=== PATIENT | female | born 1945 | race Caucasian/White ===

== ENCOUNTER → 2018-01-31 | Outpatient (CLI) | payer MEDICARE, OTHER ==
[~2018-01-31] MED LIST: ASPI-808 PO; ATOR20TA66 PO; BISO1TAB6 PO; CALC600T12 PO; CETI10TA17 PO; CHOL100048 PO; LEVO88TA54 PO; LISI-552 PO; NIAC500T24 PO; OMG1KC PO; TERA5CAP3 PO; VITA-189 PO
--- NOTE | 2018-01-31 17:16 | Diagnostic Imaging Report ---
INDICATION: Knee pain. COMPARISON: None. FINDINGS: Three views of the right knee are obtained. No acute fracture, malalignment, or osseous destructive process is seen. Joint spaces are preserved. Soft tissues appear unremarkable. IMPRESSION: Negative right knee. Dictated by: Dictated on workstation # [id number]
== END ==
LOC: RAD 16:48
PROVIDERS: ATTEND Nurse Practitioner Family
DX: M25.561 Pain in right knee (principal)
CPT/HCPCS: 73562

== ENCOUNTER → 2018-02-04 | Outpatient (CLI) | payer MEDICARE, OTHER ==
--- NOTE | 2018-02-04 10:23 | Diagnostic Imaging Report ---
EXAMINATION: Magnetic resonance imaging of the right knee without intravenous contrast DATE: 02/04/2018. COMPARISON: Right knee radiographs 01/31/2018. INDICATION: 72-year-old female, right knee pain for 3-4 months. TECHNIQUE: Multiplanar, multisequence non contrast enhanced MR imaging was accomplished. FINDINGS: MENISCI: There is an oblique tear involving the anterior horn, body, posterior horn, and posterior root attachment of the medial meniscus. The medial meniscal tear is more complex and extensive in the region of the posterior horn and posterior root attachment. There is 6 mm medial meniscal extrusion. There is a longitudinal horizontal type tear involving the anterior horn, body, and posterior horn of the lateral meniscus. LIGAMENTS AND TENDONS: The anterior and posterior cruciate ligaments are intact. The medial collateral ligament is intact. The iliotibial band, mid third lateral capsular ligament, fibular collateral ligament, biceps femoris tendon and conjoined tendon are intact. The quadriceps tendon and patella ligament are intact. JOINT: There is fissuring and irregularity along the entire length of the lateral patellar facet cartilage with degenerative related subchondral edema underlying the cartilage abnormalities. There is a 3 x 5 mm full-thickness cartilage defect of the mid lateral tibial plateau cartilage best illustrated on sagittal proton density fat saturation sequence image 8. The medial compartment cartilage is grossly intact. There is no knee joint effusion, prominent synovitis, or intra-articular body. BONE: There is low-level edema-like signal in the proximal tibia near the attachment side of the posterior root of the medial meniscus which is likely mechanically related. There is no acute fracture, bone contusion, or evidence of osteonecrosis. BURSAE AND SOFT TISSUES: There is a Medina's cyst measuring 3.4 x 1.5 x 7.5 cm in size. There is a focal fluid superficial to the patella and proximal patellar tendon compatible with a adventitial bursitis. There is adjacent nonspecific prepatellar subcutaneous edema. IMPRESSION: 1. Extensive tear of the medial meniscus with 6 mm medial meniscal extrusion. 2. Longitudinal horizontal type tear involving the anterior horn, body, and posterior horn of the lateral meniscus. 3. Intact anterior and posterior cruciate ligaments. 4. 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 No knee joint effusion. 5. Medina's cyst. 6. Prepatellar adventitial bursitis. 7. No acute fracture, bone contusion, or evidence of osteonecrosis. Dictated by: Dictated on workstation # [id number]
== END ==
LOC: RAD 08:23
PROVIDERS: ATTEND Nurse Practitioner Family
DX: S83.281A Other tear of lateral meniscus, current injury, right knee, initial encounter (principal); S83.241A Other tear of medial meniscus, current injury, right knee, initial encounter; M17.11 Unilateral primary osteoarthritis, right knee; M71.21 Synovial cyst of popliteal space [Baker], right knee; M70.51 Other bursitis of knee, right knee
CPT/HCPCS: 73721

== ENCOUNTER 2019-05-08 05:37 | Outpatient (CLI) | payer MEDICARE, OTHER ==
[~2019-05-08] VITALS: Ht 154.9 cm; Wt 79.1 kg
[2019-05-08] MEDS ORDERED: CHOL500044 PO (12:31)
[2019-05-08] MEDS ORDERED: LIOT5TAB PO (12:31)
[2019-05-08] MEDS ORDERED: BIOT5000 PO (12:31)
[2019-05-08] MEDS ORDERED: METO-387 PO (12:31)
== END 2019-05-08 12:33 | disposition home or self-care (01) ==
LOC: PREOP 05:37
PROVIDERS: ATTEND Internal Medicine
DX: Z01.818 Encounter for other preprocedural examination (principal)

== ENCOUNTER 2019-05-12 07:54 | Day surgery (SDC) | payer MEDICARE, OTHER ==
--- NOTE | 2019-05-06 11:02 | HISTORY AND PHYSICAL ---
DATE OF SERVICE: COLONOSCOPY HISTORY AND PHYSICAL HISTORY OF PRESENT ILLNESS: The patient is a 73-year-old white female referred for screening colonoscopy by Dr. Chan. I performed her only other colonoscopy in 2004 revealed no evidence for neoplasia. She is deemed to be of higher than average risk as her mother was diagnosed with colon cancer at the age of 74 and at the age of 78. She is not aware of any other family history for malignancy. She has had some recent change in bowel habit, only going every 2 or 3 days. She denies bright red blood per rectum, melena or having to strain to pass hard stool. She is just going less often. In the past, she has had problems with stool urgency within 10 to 20 minutes of meals, but this has not been an issue for the last several months. She denies any abdominal pain or significant bloating. PAST MEDICAL HISTORY: Significant for hyperlipidemia, Brittney's thyroiditis and rare episodes of atrial tachycardia. One was noted during stress test 3 weeks ago performed by Dr. Fleming that revealed no evidence for ischemia. It was an exercise Myoview test and the patient went 4 minutes on a standard [facility] protocol. PAST SURGICAL HISTORY: Significant for tonsillectomy in 7, total abdominal hysterectomy in 1981, carpal tunnel release on the right in 2004, bilateral cataract surgery in 2013 and trigger finger release in 2015. MEDICATIONS ON ADMISSION: Include aspirin 325 mg daily, atorvastatin 20 mg daily, L-thyroxine 0.88 mg daily, liothyronine 5 mcg daily, fish oil 1000 mg 3 times daily, vitamin D3 5000 units daily and biotin 5000 units daily. SOCIAL HISTORY: The patient is retired. Rare alcohol intake and no past smoking history. FAMILY HISTORY: As noted in the HPI. PHYSICAL EXAMINATION: GENERAL: Reveals a pleasant, articulate white female, in no acute distress. VITAL SIGNS: Blood pressure 140/86, weight 174.6 pounds. HEENT: Unremarkable. Sclerae nonicteric. CHEST: Clear to auscultation. CARDIOVASCULAR: Reveals regular rate and rhythm without murmur, S3 or S4. ABDOMEN: Soft, supple without mass, organomegaly or tenderness. Bowel sounds are positive. No distention is noted. No bruits are appreciated. EXTREMITIES: Reveal no cyanosis, clubbing or edema. ASSESSMENT AND PLAN: The patient was set up for screening colonoscopy on 05/12/2019. She was advised to discontinue aspirin and Amado-prep instructions were given with the Amado-prep kit. Questions were answered. Electronic medical record was reviewed. I thank you for the referral of this pleasant lady. Job ID: [id number] DocumentID: [id number] Dictated Date: 05/04/2019 16:13:38 Senior Reliability Engineer Date: 05/04/2019 16:30:18 Dictated By: PRADEEP FUNEZ MD MTDD
[2019-05-12] VITALS (13 sets, daily range): BP systolic 106–136; BP diastolic 55–76
[~2019-05-12] VITALS: Ht 154.9 cm; Wt 79.1 kg
[~2019-05-12 07:54] MED LIST changes: +BIOT5000 PO; +CHOL500044 PO; +LIOT5TAB PO; +METO-387 PO
[2019-05-12] MEDS ORDERED: D5 LR IV SOLUTION 1,000 ML IV ONE (08:02)
[2019-05-12] MEDS ORDERED: D5 LR IV SOLUTION 1,000 ML IV STA (08:04)
[2019-05-12] MEDS ORDERED: MIDAZOLAM 5 MG/5 ML (VERSED) VIAL IV PRN (08:15)
[2019-05-12] MEDS ORDERED: LIDOCAINE JELLY 2% 6 ML SYRINGE MM PRN (08:15)
[2019-05-12] MEDS ORDERED: fentaNYL INJECTION 100 MCG/2 ML AMP IVP ONE (08:15)
[2019-05-12] MEDS ORDERED: LIDOCAINE JELLY 2% 6 ML SYRINGE ONE (08:43)
[2019-05-12] MEDS ORDERED: MIDAZOLAM 2 MG/2 ML (VERSED) VIAL ONE (08:43)
[2019-05-12] MEDS ORDERED: fentaNYL INJECTION 100 MCG/2 ML AMP ONE (08:43)
--- NOTE | 2019-05-12 09:48 | Pre-Op Note & Conscious Sedat ---
Pre-Operative Progress Note H&P Reviewed The H&P was reviewed, patient examined and no changes noted. Date H&P Reviewed: May 12, 2019 Time H&P Reviewed: 08:30 Conscious Sedation Pre-Proced ASA Score 2 For ASA 3 and 4: Consider anesthesia and medical clearance. Also, for patients with a history of failed moderate sedation consider anesthesia. Airway Lungs Heart ASA score ASA 1: a normal healthy patient ASA 2: a patient with a mild systemic disease (mid diabetes, controlled hypertension, obesity ASA 3: a patient with a severe systemic disease that limits activity (angina, COPD, prior Myocardial infarction) ASA 4: a patient with an incapacitating disease that is a constant threat to life (CHF, renal failure) ASA 5: a moribund patient not expected to survive 24 hrs. (ruptured aneurysm) ASA 6: a declared brain- patient whose organs are being harvested. For emergent operations, add the letter E after the classification Mallampati Classification Grade 2 Sedation Plan Analgesia, Amnesia, Plan communicated to team members, Discussed options with patient/fam, Discussed risks with patient/fam The patient is an appropriate candidate to undergo the planned procedure, sedation, and anesthesia. The patient immediately re-assessed prior to indication. PRADEEP FUNEZ MD May 12, 2019 09:48
--- NOTE | 2019-05-12 18:48 | OPERATIVE REPORT ---
DATE OF SERVICE: COLONOSCOPY SUMMARY INDICATION FOR THE PROCEDURE: Screening colonoscopy. The patient is deemed to be of higher than average risk as her mother was diagnosed with colon cancer at the age of 78. DESCRIPTION OF PROCEDURE: The patient was placed in the left lateral decubitus position. Prior to undergoing colonoscopy, digital rectal evaluation was performed. Anal sphincter tone was normal and the perianal reflexes intact. Digital evaluation is compatible with an anterior rectocele. There was no evidence for any pockets of stool. No other abnormalities were noted on digital inspection of anal canal or distal rectal vault. The colonoscope was then inserted into the rectum and under direct visualization advanced to the cecum. The cecum was identified by identification of ileocecal valve and cecal strap and appendiceal orifice. Photographic documentation was obtained. Quality of prep was good. FINDINGS: There was no evidence for internal or external hemorrhoids and the rectum, sigmoid colon, descending colon, splenic flexure, transverse colon, hepatic flexure, ascending colon and cecum were unremarkable with no evidence for neoplasia or diverticular disease. ASSESSMENT: Normal colonoscopy to the cecum. Considering family history, I would advocate consideration for repeat screening colonoscopy in 5 years. I thank you for the referral of this pleasant lady. Job ID: [id number] DocumentID: [id number] Dictated Date: 05/12/2019 10:33:00 Vp & General Counsel Date: 05/12/2019 18:47:45 Dictated By: PRADEEP FUNEZ MD
== END 2019-05-12 10:00 | disposition home or self-care (01) ==
LOC: ENDO 07:54
PROVIDERS: ATTEND Internal Medicine
DX: Z12.11 Encounter for screening for malignant neoplasm of colon (principal); E78.5 Hyperlipidemia, unspecified; E06.3 Autoimmune thyroiditis; Z90.89 Acquired absence of other organs; Z90.710 Acquired absence of both cervix and uterus; Z79.82 Long term (current) use of aspirin; Z79.899 Other long term (current) drug therapy; Z80.0 Family history of malignant neoplasm of digestive organs

== ENCOUNTER → 2020-06-03 | Outpatient (CLI) | payer MEDICARE, OTHER ==
[~2020-06-03] VITALS: Ht 155 cm; Wt 77.0 kg
[~2020-06-03] MED LIST changes: +BISO-3 PO; -BISO1TAB6 PO; -CALC600T12 PO; +CATHETER FLUSH 10 ML SYR IV PRN; +CLC600T PO; -LIOT5TAB PO; +LIOT5TAB10 PO; -METO-387 PO; +MTP25TSR PO
[2020-06-03 09:12] VITALS: BP 133/76
--- NOTE | 2020-06-03 11:47 | Cardiology Stress Test Report ---
Stress Test Report Date of Procedure/Referring: Date of Procedure: Jun 03, 2020 PCP Ambika Brothers Admitting Physician Lorena Chan MD Indications: Hypertension Baseline Heart Rate: 79 Baseline Blood Pressure: Blood Pressure Systolic: 133 Blood Pressure Diastolic: 76 Vital Signs Date Time Temp Pulse Resp B/P (MAP) Pulse Ox O2 Delivery O2 Flow Rate FiO2 06/03/20 09:12 79 133/76 (95) 98 Baseline Vital Signs Vital Signs Date Time Temp Pulse Resp B/P (MAP) Pulse Ox O2 Delivery O2 Flow Rate FiO2 06/03/20 09:12 79 133/76 (95) 98 Baseline EKG: Baseline EKG: normal sinus rhythm Summary: After explaining the procedure and details to the patient, she signed the consent and was brought to the stress nuclear laboratory. Patient exercised on standard [facility] protocol, EKG, heart rate and blood pressure were monitored continuously, resting and stress doses of radio tracer were injected, imaging was acquired and reviewed in the short axis, horizontal long axis and vertical long axis views Patient was able to exercise for a total of 3 minutes on [facility] protocol, METs 4.6 Maximum heart rate 136 Maximum blood pressure 207/66 Stress EKG, Minimal nondiagnostic changes Recovery EKG, Return to baseline TID: 0.88 SSS: 5 SDS: 5 EF: 74 Conclusion: 1. Poor exercise tolerance for a total of 3 minutes on standard [facility] protocol, total of 4.6 METs achieving 93 percent of maximum expected heart rate 2. Hypertensive response to exercise with peak blood pressure 207/66 returned to baseline during recovery 3. Minimal nondiagnostic EKG changes with exercise returned to baseline during recovery 4. Breast attenuation with mild decreased uptake involving the mid to apical anterior lateral and inferolateral wall with subtle reversibility, probably due to breast attenuation. No significant ischemia or infarction on SPECT images was noted 5. Normal left ventricular size, EF 74 percent HIWOT CAIN MD Jun 03, 2020 11:47
== END ==
LOC: CARD 08:00
PROVIDERS: ATTEND Physician Assistant
DX: I35.1 Nonrheumatic aortic (valve) insufficiency (principal); I10 Essential (primary) hypertension; I20.1 Angina pectoris with documented spasm; E78.5 Hyperlipidemia, unspecified
CPT/HCPCS: 78452; 93017; A9502

== ENCOUNTER 2021-05-08 10:03 | Outpatient (CLI) | payer MEDICARE, OTHER ==
[~2021-05-08] VITALS: Ht 154.9 cm; Wt 79.1 kg
[~2021-05-08 10:03] MED LIST changes: +CALC600T91 PO; -CATHETER FLUSH 10 ML SYR IV PRN; -CLC600T PO; -LISI-552 PO; +LISI20TA26 PO; +TERA5CAP10 PO; -TERA5CAP3 PO
[2021-05-08] MEDS ORDERED: DENOSUMAB 60 MG/1 ML (PROLIA) SQ SCH (10:45)
[2021-05-08 10:50] VITALS: BP 143/84
== END 2021-05-08 12:09 | disposition home or self-care (01) ==
LOC: SDC 10:03
PROVIDERS: ATTEND Family Medicine
DX: M81.0 Age-related osteoporosis without current pathological fracture (principal)
CPT/HCPCS: 96372

== ENCOUNTER → 2021-07-21 | Outpatient (CLI) | payer MEDICARE, OTHER | LOC: CARD 10:00 | PROVIDERS: ATTEND Internal Medicine Cardiovascular Disease | DX: I08.0 Rheumatic disorders of both mitral and aortic valves (principal); I11.9 Hypertensive heart disease without heart failure; I49.9 Cardiac arrhythmia, unspecified | CPT/HCPCS: 93225; 93226; 93306 ==

== ENCOUNTER → 2021-11-12 | Outpatient (CLI) | payer MEDICARE, OTHER ==
[~2021-11-12] MED LIST changes: +DENOSUMAB 60 MG/1 ML (PROLIA) SQ SCH
[2021-11-12 10:00] VITALS: BP 142/70
== END ==
LOC: SDC 09:52
PROVIDERS: ATTEND Family Medicine
DX: M81.0 Age-related osteoporosis without current pathological fracture (principal)
CPT/HCPCS: 96372